=== PATIENT | male | born 1990 | race Caucasian/White ===

== ENCOUNTER 2022-05-26 10:16 | Emergency (ER) | payer OTHER ==
[2022-05-26 11:23] LABS: CARBON DIOXIDE,CO2 24.3 mmol/L (21.0-32.0)
[2022-05-26] MEDS ORDERED: Iopamidol 755 MG/ML 500 ML Multipack Bottle IVPUSH STA (11:51)
== END 2022-05-26 12:47 | disposition home or self-care (01) ==
LOC: MW.ED 10:16
DX: K40.90 Unilateral inguinal hernia, without obstruction or gangrene, not specified as recurrent (principal)
CPT/HCPCS: 36415; 74177; 80053; 81003; 85025; 99284; Q9967; 99283

== ENCOUNTER 2022-10-28 09:38 | Day surgery (SDC) | payer OTHER ==
[~2022-10-28 09:38] MED LIST: Lactated Ringers 1,000 ML IV SCH; Ropivacaine 0.5% 5 MG/ML 30 ML SDV ONE; Sodium Chloride 0.9% 10 ML Syringe FLUSH PRN; Sodium Chloride 0.9% 2.5 ML Syringe FLUSH PRN; Sodium Chloride 0.9% 20 ML SDV IV PRN; ceFAZolin 2 GM in Premix Bag 1 BAG IV ONE
[2022-10-28] MEDS ORDERED: Propofol 200 MG/20 ML SDV ONE (09:41)
[2022-10-28] MEDS ORDERED: fentaNYL 100 MCG/2 ML SDV ONE (09:41)
[2022-10-28] MEDS ORDERED: Ondansetron 4 MG/2 ML SDV ONE (09:41)
[2022-10-28] MEDS ORDERED: Dexamethasone 4 MG/ML 5 ML MDV ONE (09:41)
[2022-10-28] MEDS ORDERED: Lidocaine 2% 5 ML SDV ONE (09:41)
[2022-10-28] MEDS ORDERED: Ketorolac 30 MG/ML SDV ONE (09:41)
[2022-10-28] MEDS ORDERED: Midazolam 1 MG/ML 2 ML SDV ONE (09:45)
[2022-10-28] MEDS ORDERED: Bupivacaine 0.5% 30 ML SDV ONE (10:00)
[2022-10-28] MEDS ORDERED: Naloxone 0.4 MG/ML SDV IVPUSH PRN (10:17)
[2022-10-28] MEDS ORDERED: Ondansetron 4 MG/2 ML SDV IVPUSH PRN (10:17)
[2022-10-28] MEDS ORDERED: Morphine 2 MG/ML SYRINGE IVPUSH PRN (10:17)
[2022-10-28] MEDS ORDERED: HYDROmorphone 1 MG/ML Syringe IVPUSH PRN (10:17)
[2022-10-28] MEDS ORDERED: Albuterol 0.083% 2.5 MG/3 ML Neb Soln NEB PRN (10:17)
[2022-10-28] MEDS ORDERED: Metoclopramide 10 MG/2 ML SDV IVPUSH PRN (10:17)
[2022-10-28] MEDS ORDERED: fentaNYL 50 MCG/ML SDV IVPUSH PRN (10:17)
[2022-10-28] MEDS ORDERED: ceFAZolin 1 GM Vial ONE (10:33)
== END 2022-10-28 14:15 | disposition home or self-care (01) ==
LOC: MW.SDS 09:38
PROVIDERS: ATTEND Surgery
DX: K40.90 Unilateral inguinal hernia, without obstruction or gangrene, not specified as recurrent (principal); F17.210 Nicotine dependence, cigarettes, uncomplicated; Z98.890 Other specified postprocedural states
CPT/HCPCS: 49505; J0690; J1100; J1885; J2250; J2704; J2795; J3010; J3490; J7120; J2405

== ENCOUNTER 2023-12-12 18:10 | Emergency (ER) | payer OTHER | END 2023-12-12 18:35 | disposition home or self-care (01) | LOC: MW.ED 18:10 | DX: J45.909 Unspecified asthma, uncomplicated; Z79.899 Other long term (current) drug therapy | CPT/HCPCS: 99283 ==

== ENCOUNTER 2025-03-04 16:13 | Emergency (ER) | payer OTHER ==
[2025-03-04 16:28] LABS: BASOPHILS ABSOLUTE AUTO 0.03 K/uL (0.00-0.20); BASOPHILS PERCENT AUTO 0.4 % (0.0-1.0); EOSINOPHILS ABSOLUTE AUTO 0.06 K/uL (0.00-0.45); EOSINOPHILS PERCENT AUTO 0.7 % (0.0-6.0); HEMATOCRIT 42.1 % (42.0-52.0); IMMATURE GRAN ABSOLUTE AUTO 0.04 K/uL (0.00-0.05); IMMATURE GRAN PERCENT AUTO 0.5 % (0.0-0.4); LYMPHOCYTES PERCENT AUTO 32.7 % (24.0-44.0); MEAN CORPUSCULAR HEMOGLOBIN 32.1 pg (28.0-32.0); MEAN CORPUSCULAR HGB CONC 35.6 g/dL (32.0-36.0); MEAN CORPUSCULAR VOLUME 90.1 fL (83.0-99.0); MEAN PLATELET VOLUME 11.3 fL (9.4-12.4); MONOCYTES ABSOLUTE AUTO 0.67 K/uL (0.00-0.80); MONOCYTES PERCENT AUTO 7.8 % (0.0-8.0); NEUTROPHILS ABSOLUTE AUTO 4.95 K/uL (1.80-7.70); NEUTROPHILS PERCENT AUTO 57.9 % (41.0-71.0); PLATELET COUNT,PLT 176 K/uL (150-400); RED BLOOD CELL COUNT 4.67 M/uL (4.52-5.90); WHITE BLOOD CELL COUNT,WBC 8.55 K/uL (3.9-11.3)
[2025-03-04 16:45] LABS: A/G RATIO 1.2 (0.9-1.6); ALANINE AMINOTRANSFERASE,ALT 25 IU/L (14-63); ALBUMIN 4.1 g/dL (3.4-5.0); ALKALINE PHOSPHATASE 85 U/L (46-116); ASPARTATE AMNIOTRANSFERASE,AST 18 IU/L (15-37); BILIRUBIN TOTAL 0.3 mg/dL (0.2-1.0); BLOOD UREA NITROGEN,BUN 12 mg/dL (7.0-18.0); CALCIUM 8.2 mg/dL (8.5-10.1); CARBON DIOXIDE,CO2 14.1 mmol/L (21.0-32.0); CHLORIDE,CL 105 mmol/L (98-107); CREATININE 1.3 mg/dL (0.8-1.3); ETHANOL BLOOD MEDICAL 205 mg/dL; GLUCOSE RANDOM 104 mg/dL (74-106); POTASSIUM,K 3.2 mmol/L (3.5-5.1); PROTEIN TOTAL,TP 7.5 g/dL (6.4-8.2); SODIUM,NA 144 mmol/L (136-148)
[2025-03-04 16:46] LABS: ESTIMATED GFR 74 mL/min (>60)
[2025-03-04] MEDS: Potassium Chloride 10% 20 MEQ/15 ML Soln 15 ML UD Cup PO ONE (18:00)
[2025-03-04] MEDS: Ketorolac 30 MG/ML SDV IVPUSH ONE (19:01)
[2025-03-04] MEDS: Diphtheria,Pertussis(Acell),Tetanus Vaccine 0.5 ML Syringe IM ONE (19:23)
== END 2025-03-04 19:46 ==
LOC: MW.ED 16:13
DX: Z02.89 Encounter for other administrative examinations (principal); S06.9X9A Unspecified intracranial injury with loss of consciousness of unspecified duration, initial encounter; S62.616A Displaced fracture of proximal phalanx of right little finger, initial encounter for closed fracture; S05.12XA Contusion of eyeball and orbital tissues, left eye, initial encounter; E87.20 Acidosis, unspecified; E87.6 Hypokalemia; F10.920 Alcohol use, unspecified with intoxication, uncomplicated; Z23 Encounter for immunization; Y04.0XXA Assault by unarmed brawl or fight, initial encounter
CPT/HCPCS: 36415; 70450; 71111; 72125; 73120; 80053; 80307; 85025; 90471; 96374; 99285; A9270; J1885; 99284